=== PATIENT | male | born 1935 | race Caucasian/White ===

== ENCOUNTER 2016-10-15 19:13 | Inpatient (IN) | payer OTHER ==
[~2016-10-15] VITALS: Ht 162.6 cm; Wt 68.2 kg
[~2016-10-15 19:13] MED LIST: AMLO5TAB4 PO; ASPI-664 PO; HYDR-3498 PO; METO-448 PO; SIMV20TA6 PO; TAMS0.4C2 PO
[2016-10-15] MEDS ORDERED: ONDANSETRON 4 MG INJ IV STA (19:47)
[2016-10-15] MEDS ORDERED: hydrALAzine 20 MG INJ IV ONE ×2 (20:00→20:30)
[2016-10-15 20:18] LABS: INR 1.11; PROTIME 14.3 Sec (12.2-14.2); PT RATIO 1.1
[2016-10-15 20:19] LABS: PARTIAL THROMBOPLASTIN TIME 25.8 Sec (25.0-35.0); POTASSIUM 3.9 mmol/L (3.5-5.1)
[2016-10-15 20:22] LABS: CREATININE 0.72 mg/dl (0.61-1.24)
[2016-10-15 20:41] LABS: EOSINOPHILS % 0.2 % (0.0-7.0); HEMATOCRIT 44.6 % (42.0-52.0); HEMOGLOBIN 15.3 g/dl (14.0-18.0); LYMPHOCYTES # 0.8 10^3/ul (0.8-2.9); MEAN CORPUSCULAR HEMOGLOBIN 31.4 pg (29.0-33.0); MEAN CORPUSCULAR HGB CONC 34.3 g/dl (32.0-37.0); MEAN CORPUSCULAR VOLUME 91.5 fl (82.0-101.0); MEAN PLATELET VOLUME 7.9 fl (7.4-10.4); MONOCYTE # 0.5 10^3/ul (0.3-0.9); MONOCYTES % 3.6 % (0.0-11.0); NEUTROPHIL # 12.7 10^3/ul (1.6-7.5); NEUTROPHILS % 90.2 % (39.0-77.0); PLATELET COUNT 142 10^3/UL (140-440); RED BLOOD COUNT 4.88 10^6/ul (4.70-6.10); RED CELL DISTRIBUTION WIDTH 13.7 % (11.5-14.5); UNCORRECTED WBC 14.1 10^3/ul (4.8-10.8); WHITE BLOOD COUNT 14.1 10^3/ul (4.8-10.8)
[2016-10-15 20:46] LABS: CONDITION 1; LH ANALYZER COMMENTS 1
--- NOTE | 2016-10-15 20:51 | RADRPT ---
PROCEDURE: CT Brain without contrast. CLINICAL INDICATION: Pain, headache TECHNIQUE: Routine CT scan of the brain was performed on a high resolution multi detector scanner without intravenous contrast. One or more of the following dose reduction techniques were used: Auto mated exposure control; Adjustment of the mA and/or kV according to patient size; Use of iterative r econstruction technique. CTDI = 44 mGy. DLP = 720 mGy-cm. COMPARISON: No prior relevant examinations are available for comparison. FINDINGS: Hemorrhage: No evidence of intracranial hemorrhage. Acute ischemic changes: No evidence of acute ischemic changes. Mass effect/Midline shift: None. Parenchymal volume: Moderate central parenchymal volume loss is evident. Ventricular system: Concordant with parenchymal volume. Chronic changes: There are scattered areas of low attenuation change within the supratentorial white matter most compatible with moderate chronic microvascular ischemic changes. Atherosclerotic calcifications of the cavernous portions of both internal carotid arteries are prese nt. Extracranial soft tissues: Unremarkable. Calvarium: No fractures. Paranasal sinuses: Visualized paranasal sinuses are clear. Mastoid air cells: Visualized mastoid air cells are clear. IMPRESSION: No acute intracranial abnormalities. Moderate chronic-appearing microvascular ischemic changes of the supratentorial white matter. RPTAT: AADD .Augie Anne MD, MD Date Time Electronically viewed and signed by .Augie Anne MD, MD on 10/15/2016 20:50 .B/
--- NOTE | 2016-10-15 21:25 | ERA ---
ER Documentation Chief Complaint Date/Time DATE: 10/15/16 TIME: 21:21 Chief Complaint vomiting&dizzy x 2-3 hrs now HPI This is an 81-year-old male who presents to the emergency room for evaluation of vomiting, dizziness, generalized weakness and progressive weakness has been going on for the past 3 hours. According to the patient's family members over the past 2 days he has slowly started to become more more week. This patient has not seen a physician in a few years, and the family was concerned and brought him in for further evaluation. When I evaluated this patient he did have elevated blood pressure of greater than 200 systolic ROS All systems reviewed and are negative except as per history of present illness. Medications Home Meds Active Scripts Hydrocodone Bit-Acetaminophen* ([place]*) 5-325 Mg Tab, 1 TAB PO q6h Y for PAIN, # 30 TAB Prov:PURVI SHIRLEY TRAIN OPERATOR 10/20/15 Metoprolol Tartrate* (Lopressor*) 25 Mg Tab, 25 MG PO BID for 30 Days, TAB Prov:PURVI SIHRLEY TRAIN OPERATOR 10/20/15 Amlodipine Besylate* (Norvasc*) 5 Mg Tab, 5 MG PO BID for 30 Days, TAB Prov:PURVI SHIRLEY TRAIN OPERATOR 10/20/15 Reported Medications Tamsulosin Hcl* (Tamsulosin Hcl*) 0.4 Mg Cap.er.24h, 0.4 MG PO QHS, #90 10/06/15 Simvastatin (Simvastatin) 20 Mg Tablet, 20 MG PO QHS, #60 10/06/15 Aspirin* (Aspirin* EC) 81 Mg Tablet.dr, 81 MG PO DAILY, #90 10/06/15 Allergies Allergies: Coded Allergies: No Known Allergy (Unverified , 10/06/15) PMhx/Soc History of Surgery: Yes (Removal of part of intestine) Anesthesia Reaction: No Hx Neurological Disorder: No Hx Respiratory Disorders: No Hx Cardiac Disorders: Yes (HTN, ) Hx Psychiatric Problems: No Hx Miscellaneous Medical Probl: Yes (HTN, Hyperlipidemia, BPH, hernia) Hx Alcohol Use: No Hx Substance Use: No Hx Tobacco Use: No Smoking Status: Never smoker Physical Exam Vitals Vital Signs Date Time Temp Pulse Resp B/P Pulse Ox O2 Delivery O2 Flow Rate FiO2 10/15/16 20:19 64 204/82 10/15/16 20:12 62 16 236/89 98 Room Air 10/15/16 19:30 96.7 89 18 231/102 98 Physical Exam INITIAL VITAL SIGNS: Reviewed by me GENERAL: The patient is frail-appearing older gentleman, no acute HEENT: Dry mucous membranes, pupils equal, round, and reactive to light. EOMI. There is no scleral icterus. NECK: C-spine is soft and supple, there is no meningismus. There is no cervical lymphadenopathy. LUNGS: Clear to auscultation bilaterally. There are no rales, wheezes or rhonchi. HEART: Regular rate and rhythm, no murmurs, clicks, rubs or gallops. ABDOMEN: Soft, non-tender, non-distended. There are bowel sounds in all four quadrants. No rebound or guarding. EXTREMITIES: There is no peripheral cyanosis or edema. No focal swelling or erythema. NEUROLOGICAL: The patient moves all four extremities with 5/5 strength. Cranial nerves II - XII are intact. Alert and oriented to person and place SKIN: There is no apparent rash or petechiae. HEME/LYMPHATIC: There is no evidence of excessive bruising or lymphedema. PSYCHIATRIC: The patient does not appear anxious or depressed. Result Diagram: 10/15/16200010/15/162000 Results 24 hrs Laboratory Tests Test 10/15/16 20:01 Activated Partial Thromboplast Time 25.8Sec Anion Gap 17 Basophils # 0.010^3/ul Basophils % 0.0% Blood Urea Nitrogen 16mg/dl Calcium Level 9.0mg/dl Carbon Dioxide Level 30mmol/L Chloride Level 101mmol/L Creatinine 0.72mg/dl Eosinophils # 0.010^3/ul Eosinophils % 0.2% Glucose Level 164mg/dl Hematocrit 44.6% Hemoglobin 15.3g/dl INR International Normalized Ratio 1.11 Lymphocytes # 0.810^3/ul Lymphocytes % 6.0% Mean Corpuscular Hemoglobin 31.4pg Mean Corpuscular Hemoglobin Concent 34.3g/dl Mean Corpuscular Volume 91.5fl Mean Platelet Volume 7.9fl Monocytes # 0.510^3/ul Monocytes % 3.6% Neutrophils # 12.710^3/ul Neutrophils % 90.2% Nucleated Red Blood Cells # 0.010^3/ul Nucleated Red Blood Cells % 0.0/100WBC Platelet Count 96490^3/UL Potassium Level 3.9mmol/L Prothrombin Time 14.3Sec Prothrombin Time Ratio 1.1 Red Blood Count 4.8810^6/ul Red Cell Distribution Width 13.7% Sodium Level 144mmol/L White Blood Count 14.110^3/ul Current Medications Medications (Trade) Dose Ordered Sig/Emily Route PRN Reason Start Time Stop Time Status Last Admin Dose Admin Ondansetron HCl (Zofran Inj) 4 mg ONCE STAT IV 10/15/16 19:47 10/15/16 19:52 DC 10/15/16 20:02 Hydralazine HCl (Apresoline) 10 mg ONCE ONCE IV 10/15/16 20:00 10/15/16 20:01 DC 10/15/16 20:05 Hydralazine HCl (Apresoline) 10 mg ONCE ONCE IV 10/15/16 20:30 10/15/16 20:31 DC 10/15/16 20:30 Procedures/MDM CT head without: No acute intracranial abnormalities. Moderate chronic-appearing microvascular ischemic changes of the supratentorial white matter. This 81-year-old male presents to the emergency room for evaluation of generalized weakness, headache, and elevated blood pressure. When I evaluated him he did have a systolic blood pressure of 235. This patient was complaining of a headache, lab work was obtained and the patient was given 10 mg of hydralazine. This patient had no resolution of his high blood pressure with 10 mg of hydralazine and was subsequently given another 10 mg of hydralazine. When I reevaluated him he did have his systolic blood pressure of 190. CT of his head is normal, he has no focal neurological deficits at this time. I do not feel that he is suffering from an acute stroke. This patient is not on antihypertensive medications according to his family was at bedside. This patient will be placed in for admission at this time for evaluation of hypertension and hypertensive urgency. Departure Diagnosis: Primary Impression: Hypertensive urgency Additional Impression: Vomiting Condition: Stable CARLOS MCQUEEN DO Oct 15, 2016 21:24
[2016-10-15] MEDS ORDERED: ACETAMINOPHEN 325 MG TAB PO PRN (21:30)
[2016-10-15] MEDS ORDERED: ONDANSETRON 4 MG INJ IV PRN (21:30)
--- NOTE | 2016-10-15 22:18 | RADRPT ---
PROCEDURE: XR Chest. CLINICAL INDICATION: Weakness. TECHNIQUE: Single frontal view of the chest was obtained COMPARISON: Chest dated 10/06/2015. FINDINGS: Previously seen nasogastric tube is removed. Degree of cardiomegaly. The lungs are clear. There is no pleural effusion or pneumothorax. IMPRESSION: No acute disease. RPTAT: [facility] Physician Viv Date Time Electronically viewed and signed by Zane Eric Physician on 10/15/2016 22:18 RS/
[2016-10-15] MEDS ORDERED: LABETALOL HCL 20MG INJ IV ONE (22:30)
[2016-10-16] MEDS ORDERED: ONDANSETRON 4 MG INJ IV PRN (03:30)
[2016-10-16] MEDS ORDERED: morphine 2 MG INJ IV PRN (03:30)
[2016-10-16] MEDS ORDERED: DOCUSATE SODIUM 100 MG CAP PO PRN (03:30)
[2016-10-16] MEDS ORDERED: HYDROCODONE/APAP (5/325) TAB PO PRN (03:30)
[2016-10-16] MEDS ORDERED: NACL 0.9% 3 ML SYG IV SCH (03:30)
[2016-10-16] MEDS ORDERED: ZOLPIDEM 5 MG TAB PO PRN (03:30)
[2016-10-16] MEDS ORDERED: ACETAMINOPHEN 325 MG TAB PO PRN (03:30)
[2016-10-16 03:43] LABS: ADD UMIC NO; URINE BILIRUBIN (Dip) NEGATIVE (NEGATIVE); URINE BLOOD (Dip) NEGATIVE (NEGATIVE); URINE COLOR LT. YELLOW (YELLOW); URINE KETONES (Dip) 15 (NEGATIVE); URINE LEUKOCYTE ESTERASE (Dip) NEGATIVE (NEGATIVE); URINE NITRITE (Dip) NEGATIVE (NEGATIVE); URINE TOTAL PROTEIN (Dip) NEGATIVE (NEGATIVE); URINE UROBILINOGEN (Dip) 0.2 E.U./dL (0.1-1.0)
[2016-10-16 06:07] LABS: BASOPHILS % 0.2 % (0.0-2.0); HEMOGLOBIN 15.9 g/dl (14.0-18.0); LYMPHOCYTES # 1.4 10^3/ul (0.8-2.9); LYMPHOCYTES % 16.4 % (15.0-51.0); MEAN CORPUSCULAR HEMOGLOBIN 31.4 pg (29.0-33.0); MEAN CORPUSCULAR HGB CONC 34.7 g/dl (32.0-37.0); MEAN CORPUSCULAR VOLUME 90.4 fl (82.0-101.0); MEAN PLATELET VOLUME 7.8 fl (7.4-10.4); MONOCYTE # 0.3 10^3/ul (0.3-0.9); MONOCYTES % 3.6 % (0.0-11.0); NEUTROPHIL # 6.6 10^3/ul (1.6-7.5); NEUTROPHILS % 79.8 % (39.0-77.0); PLATELET COUNT 162 10^3/UL (140-440); RED BLOOD COUNT 5.09 10^6/ul (4.70-6.10); RED CELL DISTRIBUTION WIDTH 13.8 % (11.5-14.5); UNCORRECTED WBC 8.3 10^3/ul (4.8-10.8); WHITE BLOOD COUNT 8.3 10^3/ul (4.8-10.8)
[2016-10-16 06:12] LABS: CONDITION 1
[2016-10-16 06:14] LABS: POTASSIUM 4.2 mmol/L (3.5-5.1)
[2016-10-16 06:17] LABS: CREATININE 0.67 mg/dl (0.61-1.24)
[2016-10-16 06:18] LABS: CALCIUM 9.2 mg/dl (8.4-10.2); CHOL/HDL RATIO 2.9 RATIO; MAGNESIUM 1.9 mg/dl (1.7-2.5)
[2016-10-16] MEDS: LABETALOL HCL 20MG INJ IV PRN ×2 (06:46→15:23)
[2016-10-16] MEDS ORDERED: METOPROLOL 25 MG TAB PO SCH (09:00)
[2016-10-16] MEDS: AMLODIPINE 5 MG TAB PO SCH ×2 (09:08→20:50)
[2016-10-16] MEDS: ASPIRIN (EC) 81 MG TAB PO SCH (09:08)
--- NOTE | 2016-10-16 09:14 | HP ---
DATE OF ADMISSION: 10/15/2016 TIME: 11:30 p.m. CHIEF COMPLAINT: Vomiting and dizziness. HISTORY OF PRESENT ILLNESS: The patient is an 81-year-old male with history of hypertension, dyslip idemia. The patient presents with nausea, vomiting, dizziness, as well as generalized weakness caus ing him to be unable to ambulate. These symptoms began today, but according to the patient's family members, for the past several days he has started to be more weak. The patient has not seen a phys ician for several years. The family was concerned and brought him in for further evaluation. On ar rival in the ER, the patient's systolic blood pressure was over 200. The patient was given hydralaz ine in the ED, and his blood pressure has improved. The patient states that his nausea and vomiting are currently improved. PAST MEDICAL HISTORY 1. Hypertension, but the patient is not on any blood pressure medications at this time, as he state s that he has not been given any. 2. Dyslipidemia. 3. BPH. 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 HOME MEDICATIONS: The patient is not taking his medications at this time, but he used to take 1. [place]. 2. Metoprolol. 3. Norvasc. 4. Flomax. 5. Simvastatin. 6. Aspirin. The patient also has not seen a PCP for several years. ALLERGIES: NO KNOWN DRUG ALLERGIES. FAMILY HISTORY: Denies. SOCIAL HISTORY: Denies any tobacco, alcohol, or drug abuse. REVIEW OF SYSTEMS: A 12-point review of systems negative, except that discussed in the HPI. PHYSICAL EXAMINATION VITAL SIGNS: Temperature is 98.8, pulse 74, respiratory rate is 16, BP is 185/80, saturation 100% o n room air. GENERAL: No acute distress. Alert and oriented. HEAD, EARS, EYES, NOSE, AND THROAT: Normocephalic, atraumatic. LUNGS: Clear to auscultation. CARDIOVASCULAR: Regular rate and rhythm. ABDOMEN: Nondistended, nontender, and soft. EXTREMITIES: No clubbing, cyanosis, or edema. LABORATORY DATA: White count is 14.1, hemoglobin is 16.3, platelets are 142. Chemistry: Sodium is 144, potassium is 2.9, chloride is 101, anion gap is 17, calcium is 9.0. Urine is within normal li mits, except for a 0.1% glucose. INR is 1.11. DIAGNOSTIC DATA: Brain CT shows no acute intracranial abnormalities. There is moderate chronic-иван earing microvascular ischemic changes of the supratentorial white matter. Chest x-ray shows no acut e disease. ASSESSMENT AND PLAN 1. Hypertensive urgency. The patient's blood pressure has improved with labetalol and hydralazine given in the ED. The patient has not been taking blood pressure medications, and he has not seen hi s PCP for some time. We will resume his old blood pressure medications with Norvasc and metoprolol. 2. Intractable nausea and vomiting. This is now resolved. This may have been secondary to either food poisoning or a stomach flu. Once again, this is significantly improved. 3. Benign prostatic hypertrophy. Continue Flomax. 4. Leukocytosis, likely reactive, as the urinalysis shows no signs of infection and no signs at e [facility]. No indication for antibiotics at this time. 5. Dyslipidemia. Continue statin. 6. Prophylaxis. Sequential compression devices. Dictated By: MOJGAN BROWN/SHE Conf#: [id number] DID#: [id number]
[2016-10-16 14:53] VITALS: TEMP 98.8
[2016-10-16 15:51] VITALS: BP 220/100; RESP 20
--- NOTE | 2016-10-16 16:01 | CONS ---
Date/Time of Note Date/Time of Note DATE: 10/16/16 TIME: 15:58 Consult Date/Type/Reason Admit Date/Time Oct 15, 2016 at 21:21 Initial Consult Date Type of Consultation: internal medicine Subjective Patient complaining of headaches morning in the emergency room Mild nausea and vomiting but no chest pain Remains hemodynamically stable Objective Vital Signs Date Time Temp Pulse Resp B/P Pulse Ox O2 Delivery O2 Flow Rate FiO2 10/16/16 15:51 98.2 74 20 220/100 96 10/16/16 14:53 Room Air PHYSICAL EXAMINATION elderly gentleman VITAL SIGNS: GENERAL: No acute distress. Alert and oriented. HEAD, EARS, EYES, NOSE, AND THROAT: Normocephalic, atraumatic. LUNGS: Clear to auscultation. CARDIOVASCULAR: Regular rate and rhythm. ABDOMEN: Nondistended, nontender, and soft. EXTREMITIES: No clubbing, cyanosis, or edema. Results/Medications Result Diagram: 10/16/16 0544 10/16/16 0544 Results 24 hrs Laboratory Tests Test 10/15/16 20:01 10/16/16 03:20 10/16/16 05:44 Activated Partial Thromboplast Time 25.8 Anion Gap 17 H 18 H Basophils # 0.0 0.0 Basophils % 0.0 0.2 Blood Urea Nitrogen 16 15 Calcium Level 9.0 9.2 Carbon Dioxide Level 30 30 Chloride Level 101 100 Creatinine 0.72 0.67 Eosinophils # 0.0 0.0 Eosinophils % 0.2 0.0 Glucose Level 164 155 Hematocrit 44.6 46.0 Hemoglobin 15.3 15.9 INR International Normalized Ratio 1.11 Lymphocytes # 0.8 1.4 Lymphocytes % 6.0 L 16.4 Mean Corpuscular Hemoglobin 31.4 31.4 Mean Corpuscular Hemoglobin Concent 34.3 34.7 Mean Corpuscular Volume 91.5 90.4 Mean Platelet Volume 7.9 7.8 Monocytes # 0.5 0.3 Monocytes % 3.6 3.6 Neutrophils # 12.7 H 6.6 Neutrophils % 90.2 H 79.8 H Nucleated Red Blood Cells # 0.0 0.0 Nucleated Red Blood Cells % 0.0 0.0 Platelet Count 142 # 162 Potassium Level 3.9 4.2 Prothrombin Time 14.3 H Prothrombin Time Ratio 1.1 Red Blood Count 4.88 5.09 Red Cell Distribution Width 13.7 13.8 Sodium Level 144 144 White Blood Count 14.1 #H 8.3 # Urine Bilirubin NEGATIVE Urine Clarity CLEAR Urine Color LT. YELLOW Urine Glucose 0.1% H Urine Hemoglobin NEGATIVE Urine Ketones 15 Urine Leukocyte Esterase NEGATIVE Urine Nitrite NEGATIVE Urine Specific [place] 1.015 Urine Total Protein NEGATIVE Urine Urobilinogen 0.2 E.U./dL Urine pH 8.0 Cholesterol Level 166 Cholesterol/HDL Ratio 2.9 HDL Cholesterol 56 Hemoglobin A1c 5.9 LDL Cholesterol, Calculated 99 Magnesium Level 1.9 Triglycerides Level 55 Medications Current Medications Ondansetron HCl (Zofran Inj) 4 mg Q6H PRN IV NAUSEA AND/OR VOMITING; Start 10/16 at 03:30 Acetaminophen (Tylenol Tab) 650 mg Q6H PRN PO PAIN LEVEL 1-3 OR FEVER; Start at 03:30 Acetaminophen/ Hydrocodone Bitart ([place] (5/325)) 1 tab Q6H PRN PO MODERATE PAIN LEVEL 4-6; Start 10/16/16 at 03:30 Morphine Sulfate (morphine) 2 mg Q4H PRN IV SEVERE PAIN LEVEL 7-10; Start at 03:30 Docusate Sodium (Colace) 100 mg Q12H PRN PO CONSTIPATION; Start 10/16/16 at 03: 30 Zolpidem Tartrate (Ambien) 5 mg QHS PRN PO SLEEP; Start 10/16/16 at 03:30 Amlodipine Besylate (Norvasc) 5 mg BID PO Last administered on 10/16/16 09:08; Admin Dose 5 MG; Start 10/16/16 at 09:00 Aspirin (Halfprin) 81 mg DAILY PO Last administered on 10/16/16 09:08; Admin Dose 81 MG; Start 10/16/16 at 09:00 Metoprolol Tartrate (Lopressor) 25 mg BID PO Last administered on 10/16/16 09: 08; Admin Dose 25 MG; Start 10/16/16 at 09:00 Tamsulosin HCl (Flomax) 0.4 mg QHS PO ; Start 10/16/16 at 21:00 Labetalol HCl (Labetalol) 20 mg Q2 PRN IV SBP>170 Last administered on 15:23; Admin Dose 20 MG; Start 10/16/16 at 03:30 Atorvastatin Calcium (Lipitor) 10 mg DAILY@21 PO ; Start 10/16/16 at 21:00 Assessment/Plan Chief Complaint/Hosp Course ASSESSMENT AND PLAN 1. Hypertensive urgency. Improved with initial ER management. Will resume outpatient medications that he has been noncompliant with. We'll have cardiology reevaluation. May need echocardiogram and close outpatient following. 2. Intractable nausea and vomiting. This is now resolved. This may have been secondary to either food poisoning or a stomach flu. Encourage by mouth intake 3. Benign prostatic hypertrophy. Continue Flomax. 4. Leukocytosis, likely reactive, as the urinalysis shows no signs of infection and no signs at pneumonia. No indication for antibiotics at this time. 5. Dyslipidemia. Continue statin. 6. Prophylaxis. Sequential compression devices. 7. Deconditioning. PT evaluation Anticipate discharge tomorrow Problems: [facility] STUART [facility] Oct 16, 2016 16:01
[2016-10-16 16:02] VITALS: Ht 162.6 cm; Wt 68.2 kg
[2016-10-16 16:19] VITALS: PULSE 73
[2016-10-16] MEDS: SPIRONOLACTONE 25 MG TAB PO SCH (17:51)
[2016-10-16 17:54] LABS: CREATINE KINASE 146 IU/L (23-200)
[2016-10-16 18:08] LABS: CK-MB 2.15 ng/ml (0.0-2.4); TROPONIN-I < 0.010 ng/ml (0.00-0.12)
--- NOTE | 2016-10-16 18:23 | CONS ---
DATE OF ADMISSION: 10/15/2016 DATE OF CONSULTATION: 10/16/2016 TYPE OF CONSULTATION: Cardiology. REFERRING PHYSICIAN: Marshall Stuart MD REASON FOR CONSULTATION: Hypertensive urgency, chest pain. CHIEF COMPLAINT: Not feeling well, nausea, vomiting, dizziness, headache. HISTORY OF PRESENT ILLNESS: Thank you for this referral. History obtained from the patient, fe bowles with staff and physician. An 81-year-old gentleman, history of hypertension, dyslipid emia, currently taking no medication at home, who presented with above complaint. The patient said apparently over the past few days he has had nausea, vomiting, not feeling well. He has also compla ined of some chest pain intermittently. The patient is a very poor historian. Left-sided. Could n ot explain any exacerbating factor to it. The patient ____ severely hypertensive, blood pressure is over 200. Has been placed ____ medication, currently still blood pressure is elevated. PAST MEDICAL HISTORY: History of hypertension but has not been taking medication recently, history of dyslipidemia, BPH. SURGICAL HISTORY: Sigmoid colon resection for sigmoid volvulus. MEDICATIONS AT HOME: Does not take any at this point. Previously has been: 1. [place]. 2. Metoprolol. 3. Norvasc. 4. Flomax. 5. Simvastatin. 6. Aspirin. ALLERGIES: NO KNOWN DRUG ALLERGIES. FAMILY HISTORY: No reported early coronary artery disease. SOCIAL HISTORY: The patient denies any active tobacco, alcohol or drug abuse to me. REVIEW OF SYSTEMS: Otherwise negative except for above mentioned. PHYSICAL EXAMINATION: VITAL SIGNS: Temperature 98.2, heart rate of 72, blood pressure 220/100, respiratory rate of 20, sa turating 96%. HEENT: Normocephalic, atraumatic. Pupils equal and round. CARDIOVASCULAR: Regular rate and rhythm. Systolic murmur grade I. PULMONARY: No wheezes, no rales. GASTROINTESTINAL: Soft, nontender. EXTREMITIES: No significant lower extremity edema. NEUROLOGIC: Awake, alert, oriented x3. PSYCHIATRIC: Calm, pleasant. VASCULAR: Right and left radials are equal. LABORATORY: Sodium 144, potassium 4.2, BUN of 15, creatinine of 0.67, glucose of 155. Hemoglobin A 1c 5.9. Cholesterol 166, LDL of ____, HDL of 56. WBC of 8.3, hemoglobin 15.9, platelets of 162. EKG not done. Head CT shows no acute intracranial pathology, moderate chronic-appearing microvascular changes. Ch est x-ray shows no acute disease per radiology report. ASSESSMENT AND PLAN: 1. Chest pain, rule acute coronary syndrome. 2. Hypertensive urgency. 3. Dyslipidemia, under good control. 4. Hyperglycemia/diabetes. 5. Resection of sigmoid volvulus. RECOMMENDATIONS: I will start the patient on Aldactone. Will change the metoprolol to Coreg 12.5 b .i.d. Norvasc will be continued. Will also add captopril to his regimen to control the blood press ure better. Serial troponins will be checked today and tomorrow morning and if negative will schedu le for Lexiscan stress test tomorrow. Continue to monitor on telemetry. Echocardiogram will be ord ered as well. Dictated By: ALEXA PATEL MD AV/SHE Conf#: [id number] DID#: [id number] CC: MARSHALL STUART MD;*End*
[2016-10-16 20:10] VITALS: BP 183/86; PULSE 72; RESP 20
[2016-10-16 20:28] VITALS: PULSE 72
[2016-10-16] MEDS: ATORVASTATIN 10 MG TAB PO SCH (20:50)
[2016-10-16] MEDS: TAMSULOSIN (SR) 0.4 MG CAP PO SCH (20:50)
[2016-10-16] MEDS ORDERED: NON-FORMULARY/PATIENT OWN MED (Simvastatin 20 MG) PO SCH (21:00)
[2016-10-16 22:00] VITALS: BP 180/89; PULSE 66; RESP 18
[2016-10-17] VITALS (13 sets, daily range): BP systolic 132–164; BP diastolic 61–79; PULSE 63–74; RESP 18–20
[2016-10-17 06:54] LABS: BASOPHILS % 0.2 % (0.0-2.0); EOSINOPHILS % 0.5 % (0.0-7.0); HEMATOCRIT 41.8 % (42.0-52.0); HEMOGLOBIN 14.5 g/dl (14.0-18.0); LYMPHOCYTES % 19.6 % (15.0-51.0); MEAN CORPUSCULAR HEMOGLOBIN 31.3 pg (29.0-33.0); MEAN CORPUSCULAR HGB CONC 34.8 g/dl (32.0-37.0); MEAN CORPUSCULAR VOLUME 90.1 fl (82.0-101.0); MEAN PLATELET VOLUME 8.2 fl (7.4-10.4); MONOCYTE # 0.8 10^3/ul (0.3-0.9); MONOCYTES % 7.4 % (0.0-11.0); NEUTROPHIL # 7.5 10^3/ul (1.6-7.5); NEUTROPHILS % 72.3 % (39.0-77.0); PLATELET COUNT 153 10^3/UL (140-440); RED BLOOD COUNT 4.64 10^6/ul (4.70-6.10); RED CELL DISTRIBUTION WIDTH 13.6 % (11.5-14.5); UNCORRECTED WBC 10.3 10^3/ul (4.8-10.8); WHITE BLOOD COUNT 10.3 10^3/ul (4.8-10.8)
[2016-10-17 06:56] LABS: CONDITION 1
[2016-10-17 07:55] LABS: POTASSIUM 3.7 mmol/L (3.5-5.1)
[2016-10-17 07:57] LABS: BILIRUBIN,INDIRECT 0.9 mg/dl (0-1.1); BILIRUBIN,TOTAL 0.9 mg/dl (0.2-1.3); CREATININE 0.82 mg/dl (0.61-1.24)
[2016-10-17 07:58] LABS: ALBUMIN/GLOBULIN RATIO 1.42; CALCIUM 9.1 mg/dl (8.4-10.2); CHOL/HDL RATIO 3.4 RATIO; MAGNESIUM 1.9 mg/dl (1.7-2.5); TOTAL PROTEIN 6.8 g/dl (6.1-8.1)
[2016-10-17] MEDS: AMLODIPINE 5 MG TAB PO SCH ×2 (08:31→20:44)
[2016-10-17] MEDS: SPIRONOLACTONE 25 MG TAB PO SCH (08:31)
[2016-10-17] MEDS: ASPIRIN (EC) 81 MG TAB PO SCH (08:32)
[2016-10-17 08:50] LABS: THYROID STIMULATING HORMONE 2.94 MIU/L (0.465-4.680)
[2016-10-17 09:11] LABS: TROPONIN-I 0.01 ng/ml (0.00-0.12)
[2016-10-17 09:16] LABS: CK-MB 2.42 ng/ml (0.0-2.4)
--- NOTE | 2016-10-17 10:19 | RADRPT ---
Echocardiogram Report Patient Name: FELIX MINAYA Gender: Male Date: 1935 Study Date: 17-Oct-2016 Engineer Internship: Chloé Perez [facility] Location: [address] Ref. Physician: ALEXA COX Quality: Good Procedures: Transthoracic echocardiogram with complete 2D, M-Mode, and doppler examination. Indications: Hypertension. 2D/M Mode Doppler Measurement Value Normal Ranges Measurement Value Normal Ranges LVIDd 2D 4.8 3.5 - 5.6 cm AV Peak Beny 1.2 m/sec LVIDs 2D 2.5 2.1 - 4.1 cm AV Peak PG 5.7 mmHg LVPWd 2D 0.9 0.6 - 1.1 cm LVOT Peak Beny 1.0 m/sec IVSd 2D 1.1 0.6 - 1.1 cm LVOT Peak PG 3.7 mmHg AoR Diam 2D 3.1 2.0 - 3.7 cm MV E Peak Beny 0.5 m/sec EDV 2D 106.4 cm3 MV A Peak Beny 0.9 m/sec ESV 2D 16.4 cm3 MV E/A 0.6 LA Dimen 2D 3.9 2.3 - 4.0 cm MV Decel Time 285 msec MV Decel [place] 2 MV E/A 0.6 Findings Left Ventricle: Normal left ventricular systolic function. Normal left ventricular cavity size. Mild concentric left ventricular hypertrophy. Ejection fraction is visually estimated at 65 %. Tissue Doppler/Mitral Doppler indices are consistent with impaired relaxation (Stage I diastolic dysfunction). Right Ventricle: Normal right ventricular size. Normal right ventricular systolic function. Left Atrium: The left atrium is normal in size. Right Atrium: The right atrium is normal in size. Mitral Valve: Normal appearance and function of the mitral valve with trace physiologic regurgitation. Aortic Valve: No significant aortic stenosis or insufficiency. Aortic cusps appear mildly calcified. Tricuspid Valve: Normal appearance of the tricuspid valve. Unable to obtain RVSP due to minimal presence of tricuspid regurgitation. Pericardium: Normal pericardium with no significant pericardial effusion. Aorta: Normal aortic root. IVC: Normal size and normal respiratory collapse consistent with normal right atrial pressure. Conclusions 1.Normal left ventricular systolic function. Normal left ventricular cavity size. Mild concentric left ventricular hypertrophy. Ejection fraction is visually estimated at 65 %. Tissue Doppler/Mitral Doppler indices are consistent with impaired relaxation (Stage I diastolic dysfunction). 2.Normal appearance and function of the mitral valve with trace physiologic regurgitation. 3.No significant aortic stenosis or insufficiency. Aortic cusps appear mildly calcified. 4.Normal appearance of the tricuspid valve. Unable to obtain RVSP due to minimal presence of tricuspid regurgitation. Electronically Signed By: Alexa Cox 17-Oct-2016 10:18:50 -0800 Patient Name: FELIX MINAYA Study Date: 17-Oct-[id number]
--- NOTE | 2016-10-17 11:52 | PN ---
DATE: 10/17/2016 CARDIOLOGY FOLLOWUP NOTE SUBJECTIVE: The patient with no chest pain or pressure. No palpitation. He denies any shortness o f breath to me. His heart rate and blood pressure have remained stable. MEDICATIONS: Reviewed as per medication reconciliation, personally reviewed. PHYSICAL EXAMINATION: VITAL SIGNS: Temperature 97.4, heart rate of 65, blood pressure 136/67, respiration rate of 20, sat urating 99%. HEENT: Normocephalic, atraumatic. Pupils are equal. CARDIOVASCULAR: Regular rate and rhythm. PULMONARY: With no wheezes. GASTROINTESTINAL: Soft, nontender. EXTREMITIES: No significant edema. NEUROLOGIC: Awake and alert. PSYCHIATRIC: Calm and pleasant. LABORATORY: Cardiac enzymes were negative. Sodium 142, potassium 3.7, BUN of 22, creatinine 0.82, glucose 128. ASSESSMENT AND PLAN: 1. Hypertensive urgency, currently better controlled. 2. Chest pain syndrome, rule acute coronary syndrome. 3. Dyslipidemia. 4. Hyperglycemia/diabetes, poor compliance. 5. Dyslipidemia. RECOMMENDATIONS: Blood pressure currently better controlled. We will change the ____to lisinopril f or better compliance. We will continue with the Coreg and Norvasc. We will schedule a Lexiscan str ess test tomorrow. Dictated By: ALEXA PATEL MD AV/NTS Conf#: [id number] DID#: [id number] CC: AMY STUART MD;*EndCC*
[2016-10-17] MEDS: LISINOPRIL 20 MG TAB PO SCH (12:19)
--- NOTE | 2016-10-17 13:50 | PN ---
Date/Time of Note Date/Time of Note DATE: 10/17/16 TIME: 13:45 Assessment/Plan VTE Prophylaxis VTE Prophylaxis Intervention: SCD's Lines/Catheters IV Catheter Type (from Nrsg): Saline Lock Assessment/Plan Assessment/Plan 1. Hypertensive urgency, controlled 2. Chest pain syndrome, rule acute coronary syndrome, stress test in am per Dr. Cox 3. Dyslipidemia, stable 4. BPH, on flomax Subjective 24 Hr Interval Summary Free Text/Dictation no chest oain or shortness of breath, no headache Exam/Review of Systems Vital Signs Vitals Vital Signs Date Time Temp Pulse Resp B/P Pulse Ox O2 Delivery O2 Flow Rate FiO2 10/17/16 12:32 65 10/17/16 11:56 98.0 20 135/63 99 10/17/16 06:12 Room Air Intake and Output 10/16/16 10/16/16 10/17/16 15:00 23:00 07:00 Intake Total 420 ml 350 ml Output Total 400 ml 700 ml Balance 20 ml -350 ml Exam Constitutional: alert, oriented, well developed Psych: nl mood/affect, no complaints Head: atraumatic, normocephalic Eyes: EOMI, nl conjunctiva, nl lids, nl sclera ENMT: mucosa pink and moist, nl external ears & nose, nl lips & teeth, nl nasal mucosa & septum Neck: non-tender, supple Respiratory: clear to auscultation, normal air movement Cardiovascular: nl pulses, regular rate and rhythm Gastrointestinal: nl liver, spleen, non-tender, soft Musculoskeletal: nl extremities to inspection, nl gait and stance Extremities: normal pulses, No calf tenderness, No clubbing, No cyanosis, No edema, No palpable cord, No pitting pedal edema, No tenderness Neurological: ERP TECHNICAL LEAD II-XII intact, nl mental status, nl speech, nl strength Skin: nl turgor, rash or lesions Lymph: nl lymph nodes Results Result Diagram: 10/17/1640 10/17/16 0540 Results 24 hrs Laboratory Tests Test 10/16/16 17:20 10/17/16 05:40 Creatine Kinase 146 197 Creatine Kinase Index 1.5 1.2 Creatinine Kinase MB (Mass) 2.15 2.42 H Troponin I < 0.010 0.010 Alanine Aminotransferase (ALT/SGPT) 28 Albumin 4.0 Albumin/Globulin Ratio 1.42 Alkaline Phosphatase 53 Anion Gap 17 H Aspartate Amino Transf (AST/SGOT) 30 Basophils # 0.0 Basophils % 0.2 Blood Urea Nitrogen 22 H Calcium Level 9.1 Carbon Dioxide Level 28 Chloride Level 101 Cholesterol Level 157 Cholesterol/HDL Ratio 3.4 Creatinine 0.82 Direct Bilirubin 0.00 Eosinophils # 0.0 Eosinophils % 0.5 Free Thyroxine 1.13 Globulin 2.80 Glucose Level 128 HDL Cholesterol 45 # Hematocrit 41.8 L Hemoglobin 14.5 Indirect Bilirubin 0.9 LDL Cholesterol, Calculated 89 Lymphocytes # 2.0 Lymphocytes % 19.6 Magnesium Level 1.9 Mean Corpuscular Hemoglobin 31.3 Mean Corpuscular Hemoglobin Concent 34.8 Mean Corpuscular Volume 90.1 Mean Platelet Volume 8.2 Monocytes # 0.8 Monocytes % 7.4 Neutrophils # 7.5 Neutrophils % 72.3 Nucleated Red Blood Cells # 0.0 Nucleated Red Blood Cells % 0.0 Platelet Count 153 Potassium Level 3.7 Red Blood Count 4.64 L Red Cell Distribution Width 13.6 Sodium Level 142 Thyroid Stimulating Hormone (TSH) 2.940 Total Bilirubin 0.9 Total Protein 6.8 Triglycerides Level 115 White Blood Count 10.3 # Medications Medications Current Medications Ondansetron HCl (Zofran Inj) 4 mg Q6H PRN IV NAUSEA AND/OR VOMITING; Start 10/16 at 03:30 Acetaminophen (Tylenol Tab) 650 mg Q6H PRN PO PAIN LEVEL 1-3 OR FEVER; Start at 03:30 Acetaminophen/ Hydrocodone Bitart ([place] (5/325)) 1 tab Q6H PRN PO MODERATE PAIN LEVEL 4-6; Start 10/16/16 at 03:30 Morphine Sulfate (morphine) 2 mg Q4H PRN IV SEVERE PAIN LEVEL 7-10; Start at 03:30 Docusate Sodium (Colace) 100 mg Q12H PRN PO CONSTIPATION; Start 10/16/16 at 03: 30 Zolpidem Tartrate (Ambien) 5 mg QHS PRN PO SLEEP; Start 10/16/16 at 03:30 Amlodipine Besylate (Norvasc) 5 mg BID PO Last administered on 10/17/16t 08:31 ; Admin Dose 5 MG; Start 10/16/16 at 09:00 Aspirin (Halfprin) 81 mg DAILY PO Last administered on 10/17/16 08:32; Admin Dose 81 MG; Start 10/16/16 at 09:00 Tamsulosin HCl (Flomax) 0.4 mg QHS PO Last administered on 10/16/16 20:50; Admin Dose 0.4 MG; Start 10/16/16 at 21:00 Labetalol HCl (Labetalol) 20 mg Q2 PRN IV SBP>170 Last administered on 15:23; Admin Dose 20 MG; Start 10/16/16 at 03:30 Atorvastatin Calcium (Lipitor) 10 mg DAILY@21 PO Last administered on 10/16/16 20:50; Admin Dose 10 MG; Start 10/16/16 at 21:00 Carvedilol (Coreg) 12.5 mg BID PO Last administered on 10/17/16 08:32; Admin Dose 12.5 MG; Start 10/16/16 at 21:00 Clonidine (Catapres) 0.1 mg Q4H PRN PO sbp > 170; Start 10/16/16 at 17:00 Spironolactone (Aldactone) 25 mg DAILY PO Last administered on 10/17/16 08:31 ; Admin Dose 25 MG; Start 10/16/16 at 17:00 Lisinopril (Zestril) 40 mg DAILY PO Last administered on 10/17/16 12:19; Admin Dose 40 MG; Start 10/17/16 at 11:00 CHAPITO HOLLEY MD Oct 17, 2016 13:50
[2016-10-17] MEDS: ATORVASTATIN 10 MG TAB PO SCH (20:43)
[2016-10-17] MEDS: TAMSULOSIN (SR) 0.4 MG CAP PO SCH (20:43)
[2016-10-18] VITALS (10 sets, daily range): BP systolic 113–138; BP diastolic 58–66; PULSE 52–62; RESP 20
[2016-10-18 07:12] LABS: BASOPHILS % 0.2 % (0.0-2.0); EOSINOPHILS # 0.1 10^3/ul (0.0-0.5); EOSINOPHILS % 0.9 % (0.0-7.0); HEMATOCRIT 42.7 % (42.0-52.0); HEMOGLOBIN 14.7 g/dl (14.0-18.0); LYMPHOCYTES # 2.7 10^3/ul (0.8-2.9); LYMPHOCYTES % 26.6 % (15.0-51.0); MEAN CORPUSCULAR HEMOGLOBIN 31.1 pg (29.0-33.0); MEAN CORPUSCULAR HGB CONC 34.5 g/dl (32.0-37.0); MEAN CORPUSCULAR VOLUME 90.3 fl (82.0-101.0); MEAN PLATELET VOLUME 7.8 fl (7.4-10.4); MONOCYTE # 0.8 10^3/ul (0.3-0.9); MONOCYTES % 8.4 % (0.0-11.0); NEUTROPHIL # 6.4 10^3/ul (1.6-7.5); NEUTROPHILS % 63.9 % (39.0-77.0); PLATELET COUNT 149 10^3/UL (140-440); RED BLOOD COUNT 4.73 10^6/ul (4.70-6.10); RED CELL DISTRIBUTION WIDTH 13.6 % (11.5-14.5)
[2016-10-18 07:15] LABS: CONDITION 1
[2016-10-18 07:39] LABS: POTASSIUM 4.1 mmol/L (3.5-5.1)
[2016-10-18 07:41] LABS: ALBUMIN/GLOBULIN RATIO 1.33; BILIRUBIN,INDIRECT 0.7 mg/dl (0-1.1); BILIRUBIN,TOTAL 0.7 mg/dl (0.2-1.3); CREATININE 0.84 mg/dl (0.61-1.24)
[2016-10-18 07:42] LABS: CALCIUM 9.1 mg/dl (8.4-10.2); MAGNESIUM 1.9 mg/dl (1.7-2.5)
[2016-10-18 08:03] LABS: THYROID STIMULATING HORMONE 4.42 MIU/L (0.465-4.680)
[2016-10-18] MEDS: LISINOPRIL 20 MG TAB PO SCH (08:17)
[2016-10-18] MEDS: AMLODIPINE 5 MG TAB PO SCH (08:18)
[2016-10-18] MEDS: ASPIRIN (EC) 81 MG TAB PO SCH (08:18)
[2016-10-18] MEDS: SPIRONOLACTONE 25 MG TAB PO SCH (08:18)
[2016-10-18] MEDS ORDERED: REGADENOSON 0.4 MG/5 ML SYG ONE (09:00)
--- NOTE | 2016-10-18 12:46 | PN ---
DATE: 10/18/2016 CARDIOLOGY FOLLOWUP PROGRESS NOTE SUBJECTIVE: Discussed with the staff. Rhythm strip was reviewed. The patient with no chest pain o r pressure. No palpitation. Blood pressure has remained stable. MEDICATIONS: Reviewed. PHYSICAL EXAMINATION: VITAL SIGNS: Temperature 97.6, heart rate of 60, blood pressure 1____/62, respiration rate of 20, s aturating 95%. HEENT: Normocephalic, atraumatic. Pupils are equal. CARDIOVASCULAR: Regular rate and rhythm. PULMONARY: With no wheezes. GASTROINTESTINAL: Soft, nontender. EXTREMITIES: No edema. NEUROLOGIC: Awake, alert. PSYCHIATRIC: Calm, pleasant. LABORATORY: WBC of 10, hemoglobin of 14.7, platelet 149. Sodium 143, potassium 4.1, BUN of 23, cre atinine 0.84, glucose 144. ASSESSMENT AND PLAN: 1. Hypertensive urgency, currently improved. 2. Chest pain. Lexiscan test was ordered for today. Cardiac enzymes have been negative. 3. Dyslipidemia, stable. 4. Hyperglycemia/diabetes. 5. History of dyslipidemia. RECOMMENDATIONS: We will continue with the current blood pressure medication. Blood pressure curre ntly stable. Continue with the statin. Aspirin will be continued. Lexiscan test will be done toda y. If abnormal, we will proceed with the cardiac catheterization, otherwise, discharge planning. Dictated By: ALEXA DAVIS/SHE Conf#: [id number] DID#: [id number] CC: ;*EndCC*
--- NOTE | 2016-10-18 12:46 | PN ---
Date/Time of Note Date/Time of Note DATE: 10/18/16 TIME: 12:42 Assessment/Plan VTE Prophylaxis VTE Prophylaxis Intervention: SCD's Lines/Catheters IV Catheter Type (from Nrsg): Saline Lock Assessment/Plan Assessment/Plan Assessment/Plan 1. Hypertensive urgency, controlled 2. Chest pain syndrome, rule acute coronary syndrome, stress test today per Dr. Cox 3. Dyslipidemia, stable 4. BPH, on flomax Subjective 24 Hr Interval Summary Free Text/Dictation no chest pain now Exam/Review of Systems Vital Signs Vitals Vital Signs Date Time Temp Pulse Resp B/P Pulse Ox O2 Delivery O2 Flow Rate FiO2 10/18/16 12:19 56 10/18/16 12:05 97.0 20 119/62 96 10/17/16 06:12 Room Air Intake and Output 10/17/16 10/17/16 10/18/16 15:00 23:00 07:00 Intake Total 720 ml 750 ml Output Total 1400 ml Balance -680 ml 750 ml Exam Constitutional: alert, oriented, well developed Psych: nl mood/affect, no complaints Head: atraumatic, normocephalic Eyes: EOMI, PERRL, nl conjunctiva, nl lids, nl sclera ENMT: mucosa pink and moist, nl external ears & nose, nl lips & teeth, nl nasal mucosa & septum Neck: non-tender, supple Respiratory: clear to auscultation, normal air movement Cardiovascular: nl pulses, regular rate and rhythm Gastrointestinal: nl liver, spleen, non-tender, soft Musculoskeletal: nl extremities to inspection, nl gait and stance Extremities: normal pulses Neurological: [employer]RARIAN II-XII intact, nl mental status, nl speech, nl strength Skin: nl turgor, rash or lesions Lymph: nl lymph nodes Results Result Diagram: 10/18/1634 10/18/1634 Results 24 hrs Laboratory Tests Test 10/18/16 06:34 Alanine Aminotransferase (ALT/SGPT) 30 Albumin 4.0 Albumin/Globulin Ratio 1.33 Alkaline Phosphatase 60 Anion Gap 18 H Aspartate Amino Transf (AST/SGOT) 49 #H Basophils # 0.0 Basophils % 0.2 Blood Urea Nitrogen 23 H Calcium Level 9.1 Carbon Dioxide Level 28 Chloride Level 101 Creatinine 0.84 Direct Bilirubin 0.00 Eosinophils # 0.1 Eosinophils % 0.9 Free Thyroxine 1.17 Globulin 3.00 Glucose Level 144 Hematocrit 42.7 Hemoglobin 14.7 Indirect Bilirubin 0.7 Lymphocytes # 2.7 Lymphocytes % 26.6 Magnesium Level 1.9 Mean Corpuscular Hemoglobin 31.1 Mean Corpuscular Hemoglobin Concent 34.5 Mean Corpuscular Volume 90.3 Mean Platelet Volume 7.8 Monocytes # 0.8 Monocytes % 8.4 Neutrophils # 6.4 Neutrophils % 63.9 Nucleated Red Blood Cells # 0.0 Nucleated Red Blood Cells % 0.0 Platelet Count 149 Potassium Level 4.1 Red Blood Count 4.73 Red Cell Distribution Width 13.6 Sodium Level 143 Thyroid Stimulating Hormone (TSH) 4.420 Total Bilirubin 0.7 Total Protein 7.0 White Blood Count 10.0 Medications Medications Current Medications Ondansetron HCl (Zofran Inj) 4 mg Q6H PRN IV NAUSEA AND/OR VOMITING; Start 10/16 at 03:30 Acetaminophen (Tylenol Tab) 650 mg Q6H PRN PO PAIN LEVEL 1-3 OR FEVER; Start at 03:30 Acetaminophen/ Hydrocodone Bitart ([place] (5/325)) 1 tab Q6H PRN PO MODERATE PAIN LEVEL 4-6; Start 10/16/16 at 03:30 Morphine Sulfate (morphine) 2 mg Q4H PRN IV SEVERE PAIN LEVEL 7-10; Start at 03:30 Docusate Sodium (Colace) 100 mg Q12H PRN PO CONSTIPATION; Start 10/16/16 at 03: 30 Zolpidem Tartrate (Ambien) 5 mg QHS PRN PO SLEEP; Start 10/16/16 at 03:30 Amlodipine Besylate (Norvasc) 5 mg BID PO Last administered on 10/18/16 08:18 ; Admin Dose 5 MG; Start 10/16/16 at 09:00 Aspirin (Halfprin) 81 mg DAILY PO Last administered on 10/18/16 08:18; Admin Dose 81 MG; Start 10/16/16 at 09:00 Tamsulosin HCl (Flomax) 0.4 mg QHS PO Last administered on 10/17/16 20:43; Admin Dose 0.4 MG; Start 10/16/16 at 21:00 Labetalol HCl (Labetalol) 20 mg Q2 PRN IV SBP>170 Last administered on 15:23; Admin Dose 20 MG; Start 10/16/16 at 03:30 Atorvastatin Calcium (Lipitor) 10 mg DAILY@21 PO Last administered on 20:43; Admin Dose 10 MG; Start 10/16/16 at 21:00 Carvedilol (Coreg) 12.5 mg BID PO Last administered on 10/18/16 08:17; Admin Dose 12.5 MG; Start 10/16/16 at 21:00 Clonidine (Catapres) 0.1 mg Q4H PRN PO sbp > 170 Last administered on 03:29; Admin Dose 0.1 MG; Start 10/16/16 at 17:00 Spironolactone (Aldactone) 25 mg DAILY PO Last administered on 10/18/16 08:18 ; Admin Dose 25 MG; Start 10/16/16 at 17:00 Lisinopril (Zestril) 40 mg DAILY PO Last administered on 10/18/16 08:17; Admin Dose 40 MG; Start 10/17/16 at 11:00 CHAPITO HOLLEY MD Oct 18, 2016 12:46
--- NOTE | 2016-10-18 13:03 | RADRPT ---
PROCEDURE: Lexiscan myocardial perfusion study CLINICAL INDICATION: 81 -year-old patient complaining of chest pain. TECHNIQUE: Lexiscan 0.4 mg intravenously separate acquisition gated myocardial perfusion SPECT usi ng Tc 99m Myoview 31.4 mCi intravenously at stress and Tc-99m Myoview, 10.7 mCi intravenously at res t was performed using the rest/stress sequence. Poststress Myoview SPECT images were obtained in th e supine position. COMPARISON: No prior studies. FINDINGS: Perfusion images reveal no evidence of perfusion defects. Lexiscan post stress gated SPECT images demonstrate no wall motion abnormalities. IMPRESSION: 1. No evidence of perfusion defects. 2. No wall motion abnormalities. 3. The left ventricle ejection fraction at stress is 66%. A call report was made to Dr. Cox at 01:00 p.m. on October 18, 2016. RPTAT: HH .Susy Pozo MD, Date Time Electronically viewed and signed by .Susy Pozo MD, on 10/18/2016 13:03 .L/
[2016-10-18] MEDS ORDERED: LISI20TA11 PO (13:12)
[2016-10-18] MEDS ORDERED: ALDS PO (13:12)
[2016-10-18] MEDS ORDERED: CARV12.579 PO (13:12)
--- NOTE | 2016-10-18 13:17 | DS ---
Date/Time of Note Date/Time of Note DATE: 10/18/16 TIME: 13:13 Discharge Summary Admission/Discharge Info Admit Date/Time Oct 15, 2016 at 21:21 Discharge Date/Time Final Diagnosis 1. Hypertensive urgency, controlled 2. Chest pain, negative stress test 3. Dyslipidemia, stable 4. BPH, on flomax Patient Condition: Stable Procedures [place] [address] Radiology Main Line: [phone] DIAGNOSTIC IMAGING REPORT Patient: FELIX MINAYA : 1935 Age: 81 Sex: M MR #: [id number] DOS: 10/18/16 0800 Ordering MD: ALEXA COX MD Location: [facility] Room/Bed: [facility] PROCEDURE: Lexiscan myocardial perfusion study CLINICAL INDICATION: 81 -year-old patient complaining of chest pain. TECHNIQUE: Lexiscan 0.4 mg intravenously separate acquisition gated myocardial perfusion SPECT using Tc 99m Myoview 31.4 mCi intravenously at stress and Tc-99m Myoview, 10.7 mCi intravenously at rest was performed using the rest/stress sequence. Poststress Myoview SPECT images were obtained in the supine position. COMPARISON: No prior studies. FINDINGS: Perfusion images reveal no evidence of perfusion defects. Lexiscan post stress gated SPECT images demonstrate no wall motion abnormalities. IMPRESSION: 1. No evidence of perfusion defects. 2. No wall motion abnormalities. 3. The left ventricle ejection fraction at stress is 66%. A call report was made to Dr. Cox at 01:00 p.m. on October 18, 2016. RPTAT: HH .Susy Pozo MD, Date Time Electronically viewed and signed by .Susy Pozo MD, on 10/18/2016 13:03 .L/ CC: ALEXA CXO MD Hx of Present Illness The patient is an 81-year-old male with history of hypertension, dyslipidemia. The patient presents with nausea, vomiting, dizziness, as well as generalized weakness causing him to be unable to ambulate. These symptoms began today, but according to the patient's family members, for the past several days he has started to be more weak. The patient has not seen a physician for several years. The family was concerned and brought him in for further evaluation. On arrival in the ER, the patient's systolic blood pressure was over 200. The patient was given hydralazine in the ED, and his blood pressure has improved. The patient states that his nausea and vomiting are currently improved. Hospital Course Patient had hypertension emergency that is controlled with antihypertensive adjustment. Metoprolol is switched to coreg, patient is added on aldactone and lisinopril. His blood pressure has been well controlled. For the atypical chest pain, patient had a negative stress thallium test. Home Meds Active Scripts Spironolactone* (Aldactone*) 5 Mg/Ml (COMPOUNDED) Susp, 25 MG PO DAILY for 30 Days Prov:CHAPITO HOLLEY MD 10/18/16 Lisinopril* (Lisinopril*) 20 Mg Tablet, 40 MG PO DAILY for 30 Days, #30 TAB Prov:CHAPITO HOLLEY MD 10/18/16 Carvedilol* (Carvedilol*) 12.5 Mg Tablet, 12.5 MG PO BID for 30 Days, TAB Prov:CHAPITO HOLLEY MD 10/18/16 Hydrocodone Bit-Acetaminophen* ([place]*) 5-325 Mg Tab, 1 TAB PO q6h Y for PAIN, # 30 TAB Prov:PURVI SHIRLEY NP 10/20/15 Amlodipine Besylate* (Norvasc*) 5 Mg Tab, 5 MG PO BID for 30 Days, TAB Prov:PURVI SHIRLEY NP 10/20/15 Reported Medications Tamsulosin Hcl* (Tamsulosin Hcl*) 0.4 Mg Cap.er.24h, 0.4 MG PO QHS, #90 10/06/15 Simvastatin (Simvastatin) 20 Mg Tablet, 20 MG PO QHS, #60 10/06/15 Aspirin* (Aspirin* EC) 81 Mg Tablet.dr, 81 MG PO DAILY, #90 10/06/15 Discontinued Scripts Metoprolol Tartrate* (Lopressor*) 25 Mg Tab, 25 MG PO BID for 30 Days, TAB Prov:PURVI SHIRLEY NP 10/20/15 Follow-up Plan PCP in one week Pending Labs Laboratory Tests Test 10/18/16 06:34 Alanine Aminotransferase (ALT/SGPT) 30IU/L (13-69) Albumin 4.0g/dl (3.3-4.9) Albumin/Globulin Ratio 1.33 Alkaline Phosphatase 60IU/L (42-121) Anion Gap 18 (8-16) Aspartate Amino Transf (AST/SGOT) 49IU/L (15-46) Basophils # 0.010^3/ul (0.0-0.1) Basophils % 0.2% (0.0-2.0) Blood Urea Nitrogen 23mg/dl (7-20) Calcium Level 9.1mg/dl (8.4-10.2) Carbon Dioxide Level 28mmol/L (21-31) Chloride Level 101mmol/L (97-110) Creatinine 0.84mg/dl (0.61-1.24) Direct Bilirubin 0.00mg/dl (0.00-0.20) Eosinophils # 0.110^3/ul (0.0-0.5) Eosinophils % 0.9% (0.0-7.0) Free Thyroxine 1.17ng/dl (0.85-1.93) Globulin 3.00g/dl (1.3-3.2) Glucose Level 144mg/dl (70-220) Hematocrit 42.7% (42.0-52.0) Hemoglobin 14.7g/dl (14.0-18.0) Indirect Bilirubin 0.7mg/dl (0-1.1) Lymphocytes # 2.710^3/ul (0.8-2.9) Lymphocytes % 26.6% (15.0-51.0) Magnesium Level 1.9mg/dl (1.7-2.5) Mean Corpuscular Hemoglobin 31.1pg (29.0-33.0) Mean Corpuscular Hemoglobin Concent 34.5g/dl (32.0-37.0) Mean Corpuscular Volume 90.3fl (82.0-101.0) Mean Platelet Volume 7.8fl (7.4-10.4) Monocytes # 0.810^3/ul (0.3-0.9) Monocytes % 8.4% (0.0-11.0) Neutrophils # 6.410^3/ul (1.6-7.5) Neutrophils % 63.9% (39.0-77.0) Nucleated Red Blood Cells # 0.010^3/ul (0.0-0.0) Nucleated Red Blood Cells % 0.0/100WBC (0.0-0.0) Platelet Count 10617^3/UL (140-440) Potassium Level 4.1mmol/L (3.5-5.1) Red Blood Count 4.7310^6/ul (4.70-6.10) Red Cell Distribution Width 13.6% (11.5-14.5) Sodium Level 143mmol/L (135-144) Thyroid Stimulating Hormone (TSH) 4.420MIU/L (0.465-4.680) Total Bilirubin 0.7mg/dl (0.2-1.3) Total Protein 7.0g/dl (6.1-8.1) White Blood Count 10.010^3/ul (4.8-10.8) CHAPITO HOLLEY MD Oct 18, 2016 13:16
--- NOTE | 2016-10-18 14:14 | TMLRPT ---
DATE: 10/18/2016 LEXISCAN STRESS TEST INDICATION: Chest pain, hypertension. DESCRIPTION: Lexiscan was performed as per protocol. FINDINGS: 1. Baseline EKG showed normal sinus rhythm. Nonspecific ST-T-wave abnormality. 2. Heart rate at baseline is 69, blood pressure of 170/80; heart rate at peak stress 85, blood pres sure 141/69. 3. No significant ischemic ST changes seen. 4. No significant arrhythmia is seen. CONCLUSION: Completion of Lexiscan stress test as per protocol. See nuclear medicine results for f inal report. Dictated By: ALEXA DAVIS/SHE Conf#: [id number] DID#: [id number]
--- NOTE | 2016-10-18 22:49 | RADRPT ---
Vent Rate: 71 bpm RR Interval: 0 msec WI Interval: 176 msec QRS Duration: 94 msec QT Interval: 402 msec QTC Interval: 436 msec P-R-T [place]: 57 - -32 - 75 degrees Normal sinus rhythm Left axis deviation Abnormal ECG Electronically Signed By: Seun Chance [id number]
--- NOTE | 2016-10-19 10:44 | HP ---
DATE OF ADMISSION: 10/15/2016 ADDENDUM ADDITION TO PROBLEM LIST: Generalized weakness, likely secondary to intractable nausea, vomiting. Obtain a PT evaluation. Dictated By: MOJGAN OLIVIER MD BS/NTS Conf#: [id number] DID#: [id number]
== END 2016-10-18 18:20 | disposition home or self-care (01) | DRG 305 ==
LOC: E/R 19:13 → TEL 21:21
PROVIDERS: ADMIT Internal Medicine; ATTEND Internal Medicine
DX: I16.0 Hypertensive urgency (principal); E78.5 Hyperlipidemia, unspecified; N40.0 Benign prostatic hyperplasia without lower urinary tract symptoms; R11.2 Nausea with vomiting, unspecified; R07.9 Chest pain, unspecified
CPT/HCPCS: 36415; 70450; 71010; 78452; 80048; 80053; 80061; 81003; 82550; 82553; 83036; 83735; 84439; 84443; 84484; 85025; 85610; 85730; 93005; 93017; 93306; 96374; 96375; 96376; 97163; A9500; A9505; J0360; J2405; J2785

== ENCOUNTER 2019-03-08 10:35 | Emergency (ER) | payer OTHER ==
[~2019-03-08] VITALS: Ht 162.6 cm; Wt 77.0 kg
[~2019-03-08 10:35] MED LIST changes: +ALDS PO; -ASPI-664 PO; +ASPI-817 PO; +CARV12.579 PO; +LISI-471 PO; -METO-448 PO; +SIMV20TA20 PO; -SIMV20TA6 PO
[2019-03-08 10:37] VITALS: Ht 162.6 cm; Wt 77.0 kg
[2019-03-08] MEDS ORDERED: NICARDipine HCL 30 MG CAPSULE PO ONE (11:00)
[2019-03-08] MEDS ORDERED: MECL12.574 PO (12:03)
--- NOTE | 2019-03-08 12:06 | ERD ---
ER Documentation Chief Complaint Chief Complaint dizziness,conner, poor apetite HPI Patient is a 84-year-old male with hypertension who presents with dizziness and headache. The patient has had symptoms for the past 2.5 weeks. The patient saw his doctor on Sunday who gave medicines for high blood pressure and dizziness. The patient was not feeling better however. He feels like when he stands he might fall over. Upon review of old medical records this is the patient's third visit to the ER since 2014. His primary doctor is Dr. Dragan Stewart. ROS All systems reviewed and are negative except as per history of present illness. Medications Home Meds Active Scripts Meclizine Hcl* (Antivert*) 12.5 Mg Tab, 25 MG PO Q6H PRN for DIZZINESS, #20 TAB Prov:SHEA CHOWDHURY MD 03/08/19 Spironolactone* (Aldactone*) 5 Mg/Ml (COMPOUNDED) Susp, 25 MG PO DAILY for 30 D ays Prov:CHAPITO HOLLEY MD 10/18/16 Lisinopril* (Lisinopril*) 20 Mg Tablet, 40 MG PO DAILY for 30 Days, #30 TAB Prov:CHAPITO HOLLEY MD 10/18/16 Carvedilol* (Carvedilol*) 12.5 Mg Tablet, 12.5 MG PO BID for 30 Days, TAB Prov:CHAPITO HOLLEY MD 10/18/16 Hydrocodone Bit-Acetaminophen* ([place]*) 5-325 Mg Tab, 1 TAB PO q6h PRN for PAIN, #30 TAB Prov:PURVI SHIRLEY NP 10/20/15 Amlodipine Besylate* (Norvasc*) 5 Mg Tab, 5 MG PO BID for 30 Days, TAB Prov:PURVI SHIRLEY DELIVERY LEAD 10/20/15 Reported Medications Tamsulosin Hcl* (Tamsulosin Hcl*) 0.4 Mg Cap.er.24h, 0.4 MG PO QHS, #90 10/06/15 Simvastatin (Simvastatin) 20 Mg Tablet, 20 MG PO QHS, #60 10/06/15 Aspirin* (Aspirin* EC) 81 Mg Tablet.dr, 81 MG PO DAILY, #90 10/06/15 Allergies Allergies: Coded Allergies: No Known Allergy (Unverified , 10/06/15) PMhx/Soc History of Surgery: No Anesthesia Reaction: No Hx Neurological Disorder: No Hx Respiratory Disorders: No Hx Cardiac Disorders: Yes (htn hld) Hx Psychiatric Problems: No Hx Miscellaneous Medical Probl: Yes (ARTHRITIS) Hx Alcohol Use: No Hx Substance Use: No Hx Tobacco Use: No Smoking Status: Never smoker FmHx Family History: diabetes Physical Exam Vitals Vital Signs Date Temp Pulse Resp B/P (MAP) Pulse Ox O2 O2 Flow FiO2 Time Delivery Rate 03/08/19 98.9 63 18 128/54 97 Room Air 12:20 (78) 03/08/19 98.5 64 16 119/53 99 Room Air 11:30 (75) 03/08/19 98.5 65 18 206/102 99 10:37 (136) Physical Exam Const: No acute distress Head: Atraumatic Eyes: Normal Conjunctiva ENT: Normal External Ears, Nose and Mouth. Neck: Full range of motion. No meningismus. Resp: Clear to auscultation bilaterally Cardio: Regular rate and rhythm, no murmurs Abd: Soft, non tender, non distended. Normal bowel sounds Skin: No petechiae or rashes Back: No midline or flank tenderness Ext: No cyanosis, or edema Neur: Awake and alert Psych: Normal Mood and Affect Result Diagram: 03/08/19 1055 03/08/19 1055 Results 24 hrs Laboratory Tests Test 03/08/19 10:55 White Blood Count 6.8 10^3/ul Red Blood Count 4.51 10^6/ul Hemoglobin 13.7 g/dl Hematocrit 38.3 % Mean Corpuscular Volume 84.9 fl Mean Corpuscular Hemoglobin 30.4 pg Mean Corpuscular Hemoglobin Concent 35.8 g/dl Red Cell Distribution Width 12.8 % Platelet Count 158 10^3/UL Mean Platelet Volume 9.2 fl Immature Granulocytes % 0.300 % Neutrophils % 67.6 % Lymphocytes % 24.1 % Monocytes % 7.0 % Eosinophils % 0.7 % Basophils % 0.3 % Nucleated Red Blood Cells % 0.0 /100WBC Immature Granulocytes # 0.020 10^3/ul Neutrophils # 4.6 10^3/ul Lymphocytes # 1.7 10^3/ul Monocytes # 0.5 10^3/ul Eosinophils # 0.1 10^3/ul Basophils # 0.0 10^3/ul Nucleated Red Blood Cells # 0.0 10^3/ul Prothrombin Time 14.2 Sec Prothrombin Time Ratio 1.1 INR International Normalized Ratio 1.09 Activated Partial Thromboplast Time 28.4 Sec Sodium Level 138 mmol/L Potassium Level 3.9 mmol/L Chloride Level 98 mmol/L Carbon Dioxide Level 31 mmol/L Anion Gap 9 Blood Urea Nitrogen 17 mg/dl Creatinine 0.80 mg/dl Est Glomerular Filtrat Rate mL/min mL/min Glucose Level 204 mg/dl Hemoglobin A1c 7.7 % Calcium Level 9.3 mg/dl Troponin I < 0.012 ng/ml Triglycerides Level 168 mg/dl Cholesterol Level 162 mg/dl LDL Cholesterol, Calculated 83 mg/dl HDL Cholesterol 45 mg/dl Cholesterol/HDL Ratio 3.6 RATIO Current Medications Medications Dose Sig/Emily Start Time Status Last (Trade) Ordered Route PRN Stop Time Admin Dose Reason Admin Nicardipine 30 mg ONCE ONCE 03/08/19 DC 03/08/19 HCl PO 11:00 03/08/19 10:59 (Cardene) 11:01 Procedures/MDM EKG read by me: Rate/Rhythm: Regular rate and rhythm at a rate of 60 Intervals: Normal Impression: No evidence of ischemia or arrhythmia CT head read by radiology. Chest x-ray read by radiology. Patient is an 84-year-old male who presents with hypertension and dizziness. Full work-up was done. Laboratory studies were basically normal. CT scan of the brain was negative for brain mass or bleed. Chest x-ray was basically negative. EKG shows no signs of ischemia or arrhythmia. At this point I doubt stroke, intracranial hemorrhage, intracranial mass, or serious or joint abnormality. I doubt acute coronary syndrome. I believe outpatient management is appropriate but the patient will need close follow-up with his primary doctor within 24 to 48 hours. The patient can return for any worsening symptoms. Departure Diagnosis: Primary Impression: Dizziness Additional Impression: HTN (hypertension) Hypertension type: essential hypertension Qualified Codes: I10 - Essential (primary) hypertension Condition: Fair Patient Instructions: High Blood Pressure (Hypertension), Dizziness, Unk Cause Referrals: Dr. Dragan Stewart Additional Instructions: Llame al doctor MAANA y daniela ramirez LALO PARA DENTRO DE 1-2 HAYDEN.Dgale a la secretaria que nosotros le instruimos hacer esta lalo.Avise o llame si layton cond icin se empeora antes de la lalo. Regresa aqui si peor o no mejor. SHEA CHOWDHURY MD Mar 08, 2019 12:06
[2019-03-08 12:20] VITALS: BP 128/54; PULSE 63; RESP 18
== END 2019-03-08 12:02 | disposition home or self-care (01) ==
LOC: E/R 10:35
DX: I10 Essential (primary) hypertension (principal); R40.2142 Coma scale, eyes open, spontaneous, at arrival to emergency department; R40.2362 Coma scale, best motor response, obeys commands, at arrival to emergency department; R40.2252 Coma scale, best verbal response, oriented, at arrival to emergency department; Z79.82 Long term (current) use of aspirin
CPT/HCPCS: 36415; 70450; 71045; 80048; 80061; 83036; 84484; 85025; 85610; 85730; 93005